=== PATIENT | female | born 2000 | race Caucasian/White ===

== ENCOUNTER → 2022-01-18 11:14 | Outpatient (CLI) | payer OTHER, SELFPAY ==
[2022-01-18 12:35] LABS: COVID19 -Nasal RAPID Negative (Negative)
== END ==
PROVIDERS: Visit Provider Nurse Practitioner Family
DX: Z20.822 Contact with and (suspected) exposure to COVID-19 (principal)
CPT/HCPCS: 87635; C9803

== ENCOUNTER → 2022-01-21 14:55 | Outpatient (CLI) | payer OTHER, SELFPAY ==
--- NOTE | 2022-01-21 16:09 | PM.TREADMILL ---
Cardiac Stress Test Report Referral & Results Date Patient Seen: 01/21/22 Time Patient Seen: 16:10 Requesting provider: Rosie Parrish Indication: Chest PAIN Rest ECG: SINUS RHYTHM Procedure Note: STANDARD CHRISTIANO PROTOCOL, 9:00 MINS; 10.1 mets REDUCED EXERCISE CAPACITY; BANDAR +16% ACCELERATED HEART RATE RESPONSE; HYPERTENSIVE AT BASELINE NO CHEST PAIN OR ANGINAL SYMPTOMS NO SIGNIFICANT ST CHAGES AT PEAK EXERCISE RARE PVC TEST STOPPED DUE TO HYPERTENSION AND FATIGUE Impression: NORMAL EXERCISE STRESS TEST Please note: Actual ECG tracings can be found in the PACS system.
--- NOTE | 2022-01-21 19:28 | DI.NM.S_ITS ---
DATE OF SERVICE: 01/21/2022 PROCEDURE PERFORMED: Exercise treadmill stress test without imaging. ORDERING PROVIDER: Dr. Simba Parrish. 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 FINDINGS: 1. The patient was able to exercise for 9 minutes on a standard Mithc protocol suggesting mildly reduced exercise capacity with an BANDAR of +16%, achieving 10.1 METs although was stopped because of her hypertensive blood pressure response. 2. She had sinus tachycardia at rest at 118 BPM, but a normal heart rate response to exercise, achieving a maximum heart rate of 197 BPM (99% of her predicted maximum). She had a moderate hypertensive blood pressure response to exercise with a resting blood pressure of 140/82, increasing to a maximum of 220/90. 3. She had no chest discomfort or other anginal symptoms. 4. Her resting ECG shows sinus tachycardia with normal ST segments. With exercise, there were no significant ST-segment shifts or arrhythmias with the exception of rare isolated PVCs. IMPRESSION: 1. Normal exercise treadmill study for ischemia. 2. Possible mildly impaired exercise capacity without angina. She had a moderate hypertensive blood pressure response to exercise and mild resting sinus tachycardia, but a normal heart rate response. She had rare isolated PVCs but no other arrhythmias. Gloria Can - JOSE ELIAS/gilma/leonel doc#: [id number]/job#: [id number] dd: 01/21/2022 16:52:00 dt: 01/21/2022 18:18:00 DICTATING MD/COPIES TO: Seb Irby MD; Rosie Parrish MD COPIES MNE: THOMAS;
== END ==
PROVIDERS: PCP Physician Assistant; Referring Provider Internal Medicine Cardiovascular Disease; Visit Provider Internal Medicine Cardiovascular Disease
DX: R07.89 Other chest pain (principal); Q79.60 Ehlers-Danlos syndrome, unspecified; R00.0 Tachycardia, unspecified; R55 Syncope and collapse
CPT/HCPCS: 93017

== ENCOUNTER 2022-05-16 15:31 | Emergency (ER) | payer OTHER, SELFPAY ==
[2022-05-16 15:53] VITALS: BP 150/102; PULSE 131; RESP 22; TEMP 36.6; O2SAT 99; BMI 35.4
[2022-05-16 17:50] LABS: Add Manual Diff / Slide Review NO; Alanine Aminotransferase 17 IU/L (<35); Albumin Globulin Ratio 1.4 (1.0-2.8); Alkaline Phosphatase 59 U/L (38-126); Aspartate Aminotransferase 25 IU/L (14-36); BUN Creatinine Ratio 18.3 (6-22); Basophils Absolute Auto 100 /uL (0-100); Bilirubin Total 0.6 mg/dL (0.2-1.3); Blood Urea Nitrogen 13 mg/dL (7-17); Calcium 9.7 mg/dL (8.4-10.2); Carbon Dioxide 31 mmol/L (22-32); Chloride 100 mmol/L (98-107); Eosinophils Absolute Auto 300 /uL (0-450); Eosinophils Percent Auto 2.5 % (2-4); Estimated Glomerular Filt Rate > 60 mL/min (>60); Globulin 3.5 g/dL (1.7-4.1); Glucose 87 mg/dL (70-100); HEMOLYSIS < 15 (0-50); Hematocrit 38.6 % (36-46); Hemoglobin 13.4 g/dL (12.0-16.0); Lipase 59 U/L (23-300); Lymphocytes Absolute Auto 3000 /uL (1100-4500); Lymphocytes Percent Auto 28.7 % (25-40); Mean Corpuscular HGB Conc 34.8 % (30-36); Mean Corpuscular Volume 86.2 fL (80-100); Monocytes Absolute Auto 1000 /uL (0-900); Monocytes Percent Auto 9.2 % (3-14); Neutrophils Absolute Auto 6200 /uL (1500-7000); Neutrophils Percent Auto 58.6 % (50-75); Platelet Count 322 X10^3/uL (150-400); Potassium 3.9 mmol/L (3.4-5.1); Red Blood Cell Count 4.48 X10^6/uL (4.0-5.2); Red Cell Distribution Width 11.8 % (11.6-14.8); Sodium 140 mmol/L (137-145); Total Protein 8.5 g/dL (6.3-8.2); White Blood Cell Count 10.6 X10^3/uL (4.5-11.0)
--- NOTE | 2022-05-16 18:02 | ED.ABDPAIN ---
HPI - Abdominal Pain General Chief Complaint: Abdominal Pain Stated Complaint: lt. upper abd. pain/dizzy/chest pain Time Seen by Provider: 05/16/22 18:02 Source: patient Mode of arrival: Family Vehicle Limitations: no limitations History of Present Illness HPI narrative: This is a 22-year-old female with known Bia Danlos, autonomic dysfunction, endometriosis, PCOS and about to follow-up with neurology for evaluation for MS. Patient presents today with left upper quadrant something sensation with occasional intermittent pain. Patient states it is really the left upper quadrant only, she states it has been going on for 3-4 days occasionally she will feel nauseated but has not had any vomiting. She denies syncope but has had some mild dizziness. No fevers, no chills. She thought she might be constipated but did have a normal bowel movement today. Denies dysuria, urgency frequency or new changes to urination. She denies black or bloody stools. Denies any back or flank pain. She states it is intermittent it seems to happen more when she is standing or sitting. Patient notes she takes trazodone and gabapentin, Tylenol and Advil daily. She is supposed to be beta keysha but does not take it at this point. She has not had any prior surgeries. No known drug allergies. She is had a stress test which was normal except for hypertensive response to exercise. No tobacco, rare alcohol she did have a large Lexie yesterday and thought it might have interacted with her medications. Denies any illicit. She is accompanied by her . Related Data Allergies Allergy/AdvReac Type Severity Reaction Status Date / Time No Known Drug Allergies Allergy Verified 05/16/22 15:53 Review of Systems Review of Systems ROS Unobtainable: All systems reviewed & are unremarkable except as noted in HPI and below Patient History Social History Smoking Status: Never smoker Smoking Status: Never smoker alcohol intake frequency: 0-2 drinks per day Substance Use Type: marijuana Exam Narrative Exam Narrative: GENERAL: Alert and oriented x three, female in mild distress. HEENT: Head normocephalic, atraumatic, EOMI, pupils reactive, face symmetric, moist mucous membranes NECK: Supple, full range of motion CARDIOVASCULAR: Regular rate and rhythm without murmurs, rubs or gallops. RESPIRATORY: Breath sounds equal bilaterally, no wheezes rales or rhonchi. ABDOMEN: Soft, nontender. Normoactive bowel sounds all 4 quadrants. No guarding or rebound, rigidity, no mass, nondistended no fullness. No hepatosplenomegaly. : No CVA tenderness EXTREMITIES: Normal range of motion, no clubbing or edema. Neurovascularly intact NEUROLOGICAL: Cranial nerves II through XII grossly intact. Moving all extremities SKIN: Warm, dry, no petechiae, no rashes or lesions. Initial Vital Signs Initial Vital Signs: Vital Signs Temperature 97.8 F 05/16/22 15:53 Pulse Rate 131 H 05/16/22 15:53 Respiratory Rate 22 05/16/22 15:53 Blood Pressure 150/102 H 05/16/22 15:53 Pulse Oximetry 99 05/16/22 15:53 Oxygen Delivery Method 05/16/22 15:53 Course Orders Ordered: ED Orders 05/16/22 15:59 EKG-12 Lead Stat 05/16/22 17:28 Complete Blood Count AUTO DIFF Stat Comprehensive Metabolic Panel Stat Lipase Stat 05/16/22 18:35 US abdomen complete Stat Vital Signs Vital signs: Vital Signs - 8 hr 05/16/22 15:53 05/16/22 18:09 05/16/22 18:12 Temperature 97.8 F Pulse Rate 131 H 110 H Respiratory Rate 22 Blood Pressure 150/102 H 119/81 Pulse Oximetry 99 98 Oxygen Delivery Method Room Air 05/16/22 18:12 05/16/22 18:30 05/16/22 18:30 Temperature Pulse Rate 99 H 103 H Respiratory Rate 19 34 H Blood Pressure 137/99 H Pulse Oximetry 100 97 Oxygen Delivery Method 05/16/22 19:00 05/16/22 19:00 Temperature Pulse Rate 90 Respiratory Rate 28 H Blood Pressure 131/67 Pulse Oximetry 98 Oxygen Delivery Method MDM - Abdominal Pain Lab Data Result diagrams: 05/16/22 17:28 05/16/22 17:28 Labs: Lab Results 05/16/22 05/16/22 Range/Units 17:28 17:28 WBC 10.6 (4.5-11.0) X10^3/uL RBC 4.48 (4.0-5.2) X10^6/uL Hgb 13.4 (12.0-16.0) g/dL Hct 38.6 (36-46) % MCV 86.2 (80-100) fL MCH 30.0 (26-34) PG MCHC 34.8 (30-36) % RDW 11.8 (11.6-14.8) % Plt Count 322 (150-400) X10^3/uL Neut % (Auto) 58.6 (50-75) % Lymph % (Auto) 28.7 (25-40) % O'Brien % (Auto) 9.2 (3-14) % Eos % (Auto) 2.5 (2-4) % Baso % (Auto) 1.0 (0-2) % Neut # (Auto) 6200 (6186-3590) /uL Lymph # (Auto) 3000 (4773-3254) /uL O'Brien # (Auto) 1000 H (0-900) /uL Eos # (Auto) 300 (0-450) /uL Baso # (Auto) 100 (0-100) /uL Sodium 140 (137-145) mmol/L Potassium 3.9 (3.4-5.1) mmol/L Chloride 100 (98-107) mmol/L Carbon Dioxide 31 (22-32) mmol/L BUN 13 (7-17) mg/dL Creatinine 0.71 (0.52-1.04) mg/dL Estimated GFR > 60 (>60) mL/min BUN/Creatinine Ratio 18.3 (6-22) Glucose 87 (70-100) mg/dL Calcium 9.7 (8.4-10.2) mg/dL Total Bilirubin 0.6 (0.2-1.3) mg/dL AST 25 (14-36) IU/L ALT 17 (<35) IU/L Alkaline Phosphatase 59 (38-126) U/L Total Protein 8.5 H (6.3-8.2) g/dL Albumin 5.0 (3.5-5.0) g/dL Globulin 3.5 (1.7-4.1) g/dL Albumin/Globulin Ratio 1.4 (1.0-2.8) Lipase 59 (23-300) U/L Point of care testing: Point of Care Testing Test Results Negative Urine Dip Bedside Urine Glucose Negative Bedside Urine Bilirubin - Negative Bedside Urine Ketone - Negative Urine Specific [place] 1.015 Bedside Urine Occult Blood - Negative Bedside Urine pH 6.0 Bedside Urine Protein - Negative Bedside Urine Urobilinogen - Negative Bedside Urine Nitrite - Negative Bedside Urine Leukocytes - Negative Esterase Imaging Data US - abdomen: Radiologist's Impression: Close Abdomen Ultrasound (Signed) Ned Santo - 05/16/22 Radiology Report (Cancelled) Seb Irby - 01/21/22 Launch?[address] [address] Ultrasound Report Signed Patient: Gloria Can MR#: [id number] : 2000 Acct:[id number] Age/Sex: 22 / F Date of Service: 05/16/22 Loc: ED Accession Number: [id number] ?? Procedure: US abdomen complete Ordering Provider: Kinjal Mejia D.O. PROCEDURE:? US ABDOMEN COMPLETE ? INDICATIONS:? LUQ thumping, discomfort, Hx bia Danlos ? TECHNIQUE:? Real-time scanning was performed of the abdominal and retroperitoneal organs, with image documentation.? ? COMPARISON:? None. ? FINDINGS:? ? Liver:? Liver is normal in size and homogeneous in echotexture.? ? Gallbladder:? Is unremarkable ? Biliary ducts:? Intrahepatic bile ducts are non-dilated.? Extrahepatic bile duct caliber measures 3.1 mm.? Normal is 6-7 mm or less in diameter, or 10 mm or less post-cholecystectomy.? ? Pancreas:? Visualized portions of the pancreas are sonographically normal.? ? Spleen:? Spleen is normal in size and homogeneous in echotexture.? ? Kidneys:? Kidneys are normal in size and echotexture.? Right kidney measures 13.7 cm long; left kidney measures 12.7 cm long.? No hydronephrosis or nephrolithiasis.? No solid masses.? ? Aorta:? Visualized aorta is normal in caliber at less than 3 cm.? ? Iliacs:? Proximal common iliac arteries are normal in caliber at less than 2.5 cm.? ? IVC:? Intrahepatic inferior vena cava is patent.? ? Miscellaneous:? No free abdominal fluid.? ? ? IMPRESSION:? Unremarkable abdominal ultrasound. ? Dictated by: Ned Santo M.D. on 05/16/2022 at 19:47 ? ? Approved by: Ned Santo M.D. on 05/16/2022 at 19:48?? ECG Data Attestation: I personally reviewed and interpreted this ECG as follows: Prior ECG tracings: not available for review Interpretation: Sinus tachycardia rate 114, VT 160 QRS 106 QTC 468. No priors available. MDM Narrative Medical decision making narrative: This is a 22-year-old female presents with upper left abdominal thumping. Patient does have tachycardia and states she is known to have a tachycardia syndrome but does not know the exact name. She states she is supposed to be on a beta-keysha but not currently taking it. She does have a history complicated by Bia-Danlos, been told she is some autonomic dysfunction and is supposed to see Neurology for evaluation for MS. Labs overall are reassuring, EKG shows sinus tachycardia but no other acute changes. Patient is nontender on exam she does not any chest pain or shortness of breath. Patient states she had a CT of her chest abdomen pelvis 6 months ago which was normal. Discussed imaging with ultrasound versus CT. Patient imaging is overall reassuring with no other acute changes appreciated. Discharge Plan Departure Patient Disposition: Home Clinical Impression: Abdominal pain Activity Restrictions/Additional Instructions: Follow-up with your physician for recheck if you continue to have persistent symptoms. You may continue your home medications as prescribed. Please return for fevers, rapidly worsening pain, passing out, persistent vomiting, black or bloody stools or other new or concerning symptoms. Referrals: Beryl Guerra PA-C [Primary Care Provider] - Visit Report Forms: Patient Portal/API
[2022-05-16 18:09] VITALS: PULSE 110; O2SAT 98
[2022-05-16 18:12] VITALS: BP 119/81; PULSE 99; RESP 19; O2SAT 100
[2022-05-16 18:30] VITALS: BP 137/99; PULSE 103; RESP 34; O2SAT 97
--- NOTE | 2022-05-16 18:35 | DI.US.S_ITS ---
PROCEDURE: US ABDOMEN COMPLETE INDICATIONS: LUQ thumping, discomfort, Hx dahlia Danlos TECHNIQUE: Real-time scanning was performed of the abdominal and retroperitoneal organs, with image documentation. COMPARISON: None. FINDINGS: Liver: Liver is normal in size and homogeneous in echotexture. Gallbladder: Is unremarkable Biliary ducts: Intrahepatic bile ducts are non-dilated. Extrahepatic bile duct caliber measures 3.1 mm. Normal is 6-7 mm or less in diameter, or 10 mm or less post-cholecystectomy. Pancreas: Visualized portions of the pancreas are sonographically normal. Spleen: Spleen is normal in size and homogeneous in echotexture. Kidneys: Kidneys are normal in size and echotexture. Right kidney measures 13.7 cm long; left kidney measures 12.7 cm long. No hydronephrosis or nephrolithiasis. No solid masses. Aorta: Visualized aorta is normal in caliber at less than 3 cm. Iliacs: Proximal common iliac arteries are normal in caliber at less than 2.5 cm. IVC: Intrahepatic inferior vena cava is patent. Miscellaneous: No free abdominal fluid. IMPRESSION: Unremarkable abdominal ultrasound. Dictated by: Ned Santo M.D. on 05/16/2022 at 19:47 Approved by: Ned Santo M.D. on 05/16/2022 at 19:48
[2022-05-16 19:00] VITALS: BP 131/67; PULSE 90; RESP 28; O2SAT 98
[2022-05-16 19:30] VITALS: PULSE 92; RESP 15
== END 2022-05-16 20:09 | disposition home or self-care (01) ==
PROVIDERS: Emergency Medicine; Emergency Provider Emergency Medicine; PCP Physician Assistant
DX: R10.12 Left upper quadrant pain (principal); R42 Dizziness and giddiness
CPT/HCPCS: 36415; 76700; 80053; 81003; 81025; 83690; 85025; 93005; 99284

== ENCOUNTER 2022-05-24 17:02 | Emergency (ER) | payer OTHER, SELFPAY ==
[2022-05-24] VITALS (7 sets, daily range): BP systolic 122–147; BP diastolic 70–89; PULSE 89–105; RESP 22; TEMP 37.1; O2SAT 99–100; BMI 36.1
--- NOTE | 2022-05-24 17:51 | ED.NEUROSD ---
HPI - Neuro Symptoms/Deficit General Chief Complaint: Neuro Symptoms/Deficit Stated Complaint: numbness on lt. side of face Time Seen by Provider: 05/24/22 17:50 Source: patient Mode of arrival: Ambulatory History of Present Illness HPI Narrative: Patient is a 22-year-old female with history of stroke vs MS, presenting today with on going left-sided facial pressure. She says that she has had left arm numbness since about 1-2 years ago. I does not feel quite right. She has had 2 MRIs, the 1st MRI showed a lesion she said the 2nd 1 showed that it had resolved. She over the last 4 days has felt pressure on left side of her face. She feels like she has difficulty swallowing she is not drinking she has little dizzy and lightheaded. She denies any fever or chills. She has no sinus pressure. She has no sore throat or ear pain. She overall appears well. She is not nauseous or vomiting. She really does not have new neurologic deficits. She says that she has chest pain every day. sHe says not any worse or different today. On Anticoagulants: No Related Data Allergies Allergy/AdvReac Type Severity Reaction Status Date / Time No Known Drug Allergies Allergy Verified 05/16/22 15:53 Review of Systems Review of Systems Narrative: GENERAL: Denies chills, fatigue, malaise, fever, sweats, travel HEENT: Denies sinus pain, ear pain, sore throat, difficulty swallowing, neck pain RESPIRATORY: Denies dyspnea, cough, wheezing, hemoptysis, sputum. CARDIOVASCULAR: Denies chest pain, palpitations, orthopnea, edema GASTROINTESTINAL: Denies nausea, vomiting, abdominal pain, diarrhea, constipation, melena. : Denies dysuria, frequency, incontinence, hematuria, urinary retention, flank pain. MUSCULOSKELETAL: Denies weakness, joint pain, or bony pain SKIN: No rash, no erythema, no pruritus NEUROLOGIC: See HPI PSYCHIATRIC: No concerning psychosocial issues. 12 point review of systems is negative except for those stated above and HPI Hematologic/Lymphatic On Anticoagulants: No Patient History Social History Smoking Status: Never smoker Smoking Status: Never smoker alcohol intake frequency: 0-2 drinks per day Substance Use Type: marijuana Exam Initial Vital Signs Initial Vital Signs: Vital Signs Pulse Rate 105 H 05/24/22 17:33 Blood Pressure 147/89 H 05/24/22 17:33 Pulse Oximetry 100 05/24/22 17:33 GENERAL: Well-appearing, well-nourished and in no acute distress. HEENT: Head atraumatic,EOMI, pupils reactive, face symmetric, moist mucous membranes NECK: Supple CARDIOVASCULAR: Regular rate and rhythm without murmurs, rubs or gallops. RESPIRATORY: Breath sounds equal bilaterally, no wheezes rales or rhonchi. ABDOMEN: Soft, nontender. Normoactive bowel sounds all 4 quadrants. No guarding or rebound. EXTREMITIES: Normal range of motion, no clubbing or edema. Neurovascularly intact NEUROLOGICAL: Alert and oriented x4.Normal gait and speech. Cranial nerves II through XII grossly intact. Good vrksia-sg-undk, good nyok-nk-ptln, strength equal bilaterally, no dysarthria or aphasia, sensation on left side slightly decreased but at baseline, no visual changes, no facial droop SKIN: Warm, dry, no laceration, no petechiae, no rashes or lesions. Scores NIH Stroke Scale Level of Conciousness: Alert, keenly responsive Ask month/age: Answers both questions correctly. Open/close eyes, close hand: Performs both tasks correctly Best gaze horizontal: Normal Visual elaine: No visual loss Facial palsy: Normal symetrical movement Left arm drift: No drift for full 10 sec Right arm drift: No drift for full 10 sec Left leg drift: No drift for full 5 sec Right leg drift: No drift for full 5 sec Limb ataxia: Absent Sensory on face/arms/legs: Mild to moderate sensory loss, can tell touch (chronic) Best language: No aphasia, normal Dysarthria: Normal Extinction or inattention: No abnormality Total NIH Stroke scale score: 1 Course Orders Ordered: ED Orders 05/24/22 17:57 CT head/brain wo con Stat EKG-12 Lead Stat 05/24/22 18:30 CBC Auto Diff [Complete Blood Count AUTO DIFF] Stat CMP [Comprehensive Metabolic Panel] Stat Troponin & CK Cardiac Panel Stat 05/24/22 19:39 Urinalysis and Microscopic Stat 05/24/22 19:40 Test Urine Stat Discontinued Medications Hydrocodone Bitart/Acetaminophen (Hydrocodone/Acet 5/325 Prepack) 1 bottle MISC SEEINSTR ONE Stop: 05/24/22 19:55 Last Admin: 05/24/22 20:04 Dose: 1 bottle Documented By: ASHLY Dexamethasone (Dexamethasone 10 Mg/Ml Vial) 6 mg IV NOW ONE Stop: 05/24/22 17:58 Last Admin: 05/24/22 18:51 Dose: 6 mg Documented By: AMU Sodium Chloride (Normal Saline 0.9%) 1,000 mls @ 1,000 mls/hr IV BOLUS ONE Stop: 05/24/22 18:56 Last Infusion: 05/24/22 19:54 Dose: 0 mls/hr Documented By: Admin: 05/24/22 18:51 Dose: 1,000 mls/hr Documented By: AMU Vital Signs Vital signs: Vital Signs - 8 hr 05/24/22 17:37 05/24/22 17:33 05/24/22 17:33 Temperature 98.7 F Pulse Rate 97 H 105 H Respiratory Rate 22 Blood Pressure 147/89 H 147/89 H Pulse Oximetry 100 100 Oxygen Delivery Method Room Air 05/24/22 18:00 05/24/22 18:00 05/24/22 18:38 Temperature Pulse Rate 94 H 94 H Respiratory Rate Blood Pressure 138/83 Pulse Oximetry 100 99 Oxygen Delivery Method 05/24/22 19:00 05/24/22 19:30 05/24/22 19:37 Temperature Pulse Rate 89 91 H 99 H Respiratory Rate Blood Pressure Pulse Oximetry 100 100 100 Oxygen Delivery Method 05/24/22 19:37 Temperature Pulse Rate Respiratory Rate Blood Pressure 122/70 Pulse Oximetry Oxygen Delivery Method MDM - Neuro Symptoms/Deficit Lab Data Result diagrams: 05/24/22 18:30 05/24/22 18:30 Labs: Lab Results 05/24/22 05/24/22 05/24/22 Range/Units 18:30 18:30 19:39 WBC 9.9 (4.5-11.0) X10^3/uL RBC 4.14 (4.0-5.2) X10^6/uL Hgb 12.6 (12.0-16.0) g/dL Hct 35.9 L (36-46) % MCV 86.8 (80-100) fL MCH 30.4 (26-34) PG MCHC 35.0 (30-36) % RDW 12.0 (11.6-14.8) % Plt Count 277 (150-400) X10^3/uL Neut % (Auto) 60.6 (50-75) % Lymph % (Auto) 29.7 (25-40) % [place] % (Auto) 7.2 (3-14) % Eos % (Auto) 1.6 L (2-4) % Baso % (Auto) 0.9 (0-2) % Neut # (Auto) 6000 (7044-4758) /uL Lymph # (Auto) 2900 (5926-4556) /uL [place] # (Auto) 700 (0-900) /uL Eos # (Auto) 200 (0-450) /uL Baso # (Auto) 100 (0-100) /uL Sodium 141 (137-145) mmol/L Potassium 3.9 (3.4-5.1) mmol/L Chloride 104 (98-107) mmol/L Carbon Dioxide 27 (22-32) mmol/L BUN 12 (7-17) mg/dL Creatinine 0.76 (0.52-1.04) mg/dL Estimated GFR > 60 (>60) mL/min BUN/Creatinine Ratio 15.8 (6-22) Glucose 83 (70-100) mg/dL Calcium 9.4 (8.4-10.2) mg/dL Total Bilirubin 0.3 (0.2-1.3) mg/dL AST 25 (14-36) IU/L ALT 15 (<35) IU/L Alkaline Phosphatase 60 (38-126) U/L Total Creatine Kinase 154 H (30-135) U/L CK-MB (CK-2) 1.55 (<2.37) ng/mL CK-MB (CK-2) Rel Index 1.0 L (1.5-5.0) % Troponin I < 0.012 (0.01-0.034) ng/mL Total Protein 8.3 H (6.3-8.2) g/dL Albumin 4.8 (3.5-5.0) g/dL Globulin 3.5 (1.7-4.1) g/dL Albumin/Globulin Ratio 1.4 (1.0-2.8) Urine Color Straw Urine Appearance Clear Urine pH 7.0 (4.5-8.0) Ur Specific [place] <=1.005 (1.000-1.035) Urine Protein Negative (Negative) Urine Glucose (UA) Negative (Negative) g/dL Urine Ketones Negative (NEGATIVE) Urine Occult Blood Negative (Negative) Urine Nitrate Negative (Negative) Urine Bilirubin Negative (NEGATIVE) Urine Urobilinogen 0.2 (0.2) E.U./dL Ur Leukocyte Esterase Negative (NEGATIVE) Urine RBC 0-1/hpf (0-5/HPF) Urine WBC 0-1/hpf (0-5/HPF) Urine Bacteria None seen (None) Ur Culture Indicated? Cult not indicated Urine Test (Negative) 05/24/22 Range/Units 19:40 WBC (4.5-11.0) X10^3/uL RBC (4.0-5.2) X10^6/uL Hgb (12.0-16.0) g/dL Hct (36-46) % MCV (80-100) fL MCH (26-34) PG MCHC (30-36) % RDW (11.6-14.8) % Plt Count (150-400) X10^3/uL Neut % (Auto) (50-75) % Lymph % (Auto) (25-40) % [place] % (Auto) (3-14) % Eos % (Auto) (2-4) % Baso % (Auto) (0-2) % Neut # (Auto) (7260-7416) /uL Lymph # (Auto) (9349-1478) /uL [place] # (Auto) (0-900) /uL Eos # (Auto) (0-450) /uL Baso # (Auto) (0-100) /uL Sodium (137-145) mmol/L Potassium (3.4-5.1) mmol/L Chloride (98-107) mmol/L Carbon Dioxide (22-32) mmol/L BUN (7-17) mg/dL Creatinine (0.52-1.04) mg/dL Estimated GFR (>60) mL/min BUN/Creatinine Ratio (6-22) Glucose (70-100) mg/dL Calcium (8.4-10.2) mg/dL Total Bilirubin (0.2-1.3) mg/dL AST (14-36) IU/L ALT (<35) IU/L Alkaline Phosphatase (38-126) U/L Total Creatine Kinase (30-135) U/L CK-MB (CK-2) (<2.37) ng/mL CK-MB (CK-2) Rel Index (1.5-5.0) % Troponin I (0.01-0.034) ng/mL Total Protein (6.3-8.2) g/dL Albumin (3.5-5.0) g/dL Globulin (1.7-4.1) g/dL Albumin/Globulin Ratio (1.0-2.8) Urine Color Urine Appearance Urine pH (4.5-8.0) Ur Specific [place] (1.000-1.035) Urine Protein (Negative) Urine Glucose (UA) (Negative) g/dL Urine Ketones (NEGATIVE) Urine Occult Blood (Negative) Urine Nitrate (Negative) Urine Bilirubin (NEGATIVE) Urine Urobilinogen (0.2) E.U./dL Ur Leukocyte Esterase (NEGATIVE) Urine RBC (0-5/HPF) Urine WBC (0-5/HPF) Urine Bacteria (None) Ur Culture Indicated? Urine Test Negative (Negative) Imaging Data CT scan - head: Radiologist's Impression: ?Gloria Can MR#: [id number] : 2000 Acct:[id number] Age/Sex: 22 / F Date of Service: 05/24/22 Loc: Accession Number: [id number] ?? Procedure: CT head/brain wo con Ordering Provider: Simi Joy D.O. PROCEDURE:? CT HEAD/BRAIN WO CON ? INDICATIONS:? pressure left side of face ? TECHNIQUE:? Noncontrast 4.5 mm thick angled axial sections acquired from the foramen magnum to the vertex, with coronal and sagittal reformats.? For radiation dose reduction, the following was used:? automated exposure control, adjustment of mA and/or kV according to patient size.? ? COMPARISON:? [facility], MR, MR BRAIN WITHOUT CONTRAST, 02/13/2022, 14:07. ? FINDINGS:? Image quality:? Excellent.? ? CSF spaces:? Basal cisterns are patent.? No extra-axial fluid collections.? Ventricles are normal in size and shape.? ? Brain:? No midline shift.? No intracranial masses or hemorrhage.? Nam-white matter interface is normal.? ? Skull and face:? Calvarium and visualized facial bones are intact, without suspicious lesions.? ? Sinuses:? Visualized sinuses and mastoids are clear.? IMPRESSION:? Normal noncontrast head CT, without a cause of the patient's presenting symptoms identified. ? ? Dictated by: Jim Luther M.D. on 05/24/2022 at 17:24 ? ? ECG Data Interpretation: Normal sinus AK interval 164 QRS [address] changes T-wave inversion noted in lead 3 only MDM Narrative Medical decision making narrative: Patient is having some left-sided facial pressure. She has no new neurologic deficits. Head CT is negative. Blood work is overall reassuring. She has appointment with neurology and couple of weeks she says is taking her couple years to get it. She is given a dose of dexamethasone. I have given her prepack for hydrocodone to help give her some relief tonight she drove herself here today. Other etiologies included trigeminal neuralgia however this does not seem to be neurologic sharp stabbing pain. Unlikely to be stroke. Possible MS flare but it just does not quite fit. Discharge Plan Departure Patient Disposition: Home Clinical Impression: Headache Instructions: DI for Cluster Headache Activity Restrictions/Additional Instructions: *You have been diagnosed with headache *What to do: At this time head CT is negative blood work is reassuring. I do encourage follow-up with neurology as you have scheduled. You were given 1 dose of dexamethasone which might help some of the inflammation. *Continue to take medications as directed Ibuprofen 600 mg every 6 hours if needed for fqsi-uu-roegwmzz pain (do not take with Advil, naproxen or other NSAIDs) Tylenol 1000 mg every 6 hours if needed for neoy-pe-brwfrxhk pain [place] 1 tablet every 6 hours if needed for severe pain *Follow up with your primary care provider in 2-3 days or call [phone] *Return to ER if you should have increasing pain numbness tingling or weakness or any new, worsening or concerning symptoms CONTROLLED SUBSTANCE DISCHARGE (Narcotoic/benzodiazepine/Flexeril/Phenergan) 1. You have been prescribed narcotic medications, it does have acetaminophen/Tylenol/paracetamol in it, DO NOT TAKE MORE THAN 4,00mg in 24 hours of Tylenol. TRAMADOL DOES NOT CONTAIN TYLENOL 2. Please understand that we cannot provide further refills of narcotics, benzodiazepines or controlled substances through the ED and her pain management will need to be through your provider. 3. While on these medications you cannot drive or operate heavy machinery. 4. You cannot sign legal documents or perform any duties such as this. 5. As long as you're taking opiate pain medications he should also be taking a stool softener such as Colace, Dulcolax, MiraLAX or prune juice, to help avoid constipation. Referrals: Beryl Guerra PA-C [Primary Care Provider] - Visit Report Forms: Patient Portal/API
--- NOTE | 2022-05-24 17:57 | DI.CT.S_ITS ---
PROCEDURE: CT HEAD/BRAIN WO CON INDICATIONS: pressure left side of face TECHNIQUE: Noncontrast 4.5 mm thick angled axial sections acquired from the foramen magnum to the vertex, with coronal and sagittal reformats. For radiation dose reduction, the following was used: automated exposure control, adjustment of mA and/or kV according to patient size. COMPARISON: [facility], MR, MR BRAIN WITHOUT CONTRAST, 02/13/2022, 14:07. FINDINGS: Image quality: Excellent. CSF spaces: Basal cisterns are patent. No extra-axial fluid collections. Ventricles are normal in size and shape. Brain: No midline shift. No intracranial masses or hemorrhage. Nam-white matter interface is normal. Skull and face: Calvarium and visualized facial bones are intact, without suspicious lesions. Sinuses: Visualized sinuses and mastoids are clear. IMPRESSION: Normal noncontrast head CT, without a cause of the patient's presenting symptoms identified. Dictated by: Jim Luther M.D. on 05/24/2022 at 17:24 Approved by: Jim Luther M.D. on 05/24/2022 at 17:25
[2022-05-24] MEDS: SODIUM CHLORIDE 0.9% 1,000 ML 1000 ML IV (18:51)
[2022-05-24] MEDS: DEXAMETHASONE 10 MG/ML VIAL 6 MG IV (18:51)
[2022-05-24 18:55] LABS: Add Manual Diff / Slide Review NO; Basophils Absolute Auto 100 /uL (0-100); Basophils Percent Auto 0.9 % (0-2); Eosinophils Absolute Auto 200 /uL (0-450); Eosinophils Percent Auto 1.6 % (2-4); Hematocrit 35.9 % (36-46); Hemoglobin 12.6 g/dL (12.0-16.0); Lymphocytes Absolute Auto 2900 /uL (1100-4500); Lymphocytes Percent Auto 29.7 % (25-40); Mean Corpuscular Hemoglobin 30.4 PG (26-34); Mean Corpuscular Volume 86.8 fL (80-100); Monocytes Absolute Auto 700 /uL (0-900); Monocytes Percent Auto 7.2 % (3-14); Neutrophils Absolute Auto 6000 /uL (1500-7000); Neutrophils Percent Auto 60.6 % (50-75); Platelet Count 277 X10^3/uL (150-400); Red Blood Cell Count 4.14 X10^6/uL (4.0-5.2); White Blood Cell Count 9.9 X10^3/uL (4.5-11.0)
[2022-05-24 19:05] LABS: Alanine Aminotransferase 15 IU/L (<35); Albumin 4.8 g/dL (3.5-5.0); Albumin Globulin Ratio 1.4 (1.0-2.8); Alkaline Phosphatase 60 U/L (38-126); Aspartate Aminotransferase 25 IU/L (14-36); BUN Creatinine Ratio 15.8 (6-22); Bilirubin Total 0.3 mg/dL (0.2-1.3); Blood Urea Nitrogen 12 mg/dL (7-17); Calcium 9.4 mg/dL (8.4-10.2); Carbon Dioxide 27 mmol/L (22-32); Chloride 104 mmol/L (98-107); Creatine Kinase 154 U/L (30-135); Estimated Glomerular Filt Rate > 60 mL/min (>60); Globulin 3.5 g/dL (1.7-4.1); Glucose 83 mg/dL (70-100); HEMOLYSIS < 15 (0-50); Potassium 3.9 mmol/L (3.4-5.1); Sodium 141 mmol/L (137-145); Total Protein 8.3 g/dL (6.3-8.2)
[2022-05-24 19:16] LABS: Troponin I < 0.012 ng/mL (0.01-0.034)
[2022-05-24 19:20] LABS: Creatine Kinase MB 1.55 ng/mL (<2.37)
[2022-05-24] MEDS: HYDROCODONE/ACET 5/325 PREPACK 1 BOTTLE MISC (20:04)
[2022-05-24 20:28] LABS: Pregnancy Test Urine Negative (Negative)
[2022-05-24 20:28] LABS: Appearance Urine UA CLEAR; Bilirubin Urine UA NEGATIVE (NEGATIVE); Glucose Urine UA NEGATIVE (Negative); Ketones Urine UA NEGATIVE (NEGATIVE); Leukocyte Esterase Urine UA NEGATIVE (NEGATIVE); Nitrite Urine UA NEGATIVE (Negative); Occult Blood Urine UA NEGATIVE (Negative); Protein Urine UA NEGATIVE (Negative); Specific Gravity Urine UA <=1.005 (1.000-1.035); Urobilinogen Urine UA 0.2 E.U./dL (0.2)
[2022-05-24 20:29] LABS: Color Urine UA Straw
[2022-05-24 21:13] LABS: Bacteria Urine None Seen; Culture Indicated Urine Cult Not Indicated; RBC Urine 0-1/HPF (0-5/HPF); WBC Urine 0-1/HPF (0-5/HPF)
== END 2022-05-24 20:10 | disposition home or self-care (01) ==
PROVIDERS: Emergency Provider Emergency Medicine; PCP Physician Assistant
DX: R51.9 Headache, unspecified (principal)
CPT/HCPCS: 36415; 70450; 80053; 81001; 81025; 82550; 82553; 84484; 85025; 93005; 96361; 96374; 99284; J1100

== ENCOUNTER 2022-05-28 13:52 | Emergency (ER) | payer OTHER, SELFPAY ==
[2022-05-28] VITALS (10 sets, daily range): BP systolic 132–182; BP diastolic 70–101; PULSE 91–129; RESP 14–31; TEMP 37.2; O2SAT 98–99
--- NOTE | 2022-05-28 14:06 | DI.RAD.S_ITS ---
PROCEDURE: XR CHEST 1V INDICATIONS: chest pain TECHNIQUE: One view of the chest was acquired. COMPARISON: [facility], CT, CT ANGIO CHEST PE, 10/29/2021, 13:31. [facility], CR, XR CHEST 1 VIEW, 10/29/2021, 10:17. FINDINGS: Surgical changes and devices: None. Lungs and pleura: Lungs are clear. No pleural effusions or pneumothorax. Mediastinum: Mediastinal contours appear normal. Heart size is normal. Bones and chest wall: No suspicious bony lesions. Overlying soft tissues appear unremarkable. IMPRESSION: No acute pulmonary process. Dictated by: Ayla Liz M.D. on 05/28/2022 at 15:06 Approved by: Ayla Liz M.D. on 05/28/2022 at 15:06
[2022-05-28 14:20] LABS: Add Manual Diff / Slide Review NO; Basophils Absolute Auto 100 /uL (0-100); Basophils Percent Auto 0.8 % (0-2); Eosinophils Absolute Auto 200 /uL (0-450); Eosinophils Percent Auto 1.6 % (2-4); Hemoglobin 13.3 g/dL (12.0-16.0); Lymphocytes Absolute Auto 2800 /uL (1100-4500); Lymphocytes Percent Auto 25.4 % (25-40); Mean Corpuscular HGB Conc 34.1 % (30-36); Mean Corpuscular Hemoglobin 29.7 PG (26-34); Monocytes Absolute Auto 800 /uL (0-900); Monocytes Percent Auto 7.4 % (3-14); Neutrophils Absolute Auto 7100 /uL (1500-7000); Neutrophils Percent Auto 64.8 % (50-75); Platelet Count 301 X10^3/uL (150-400); Red Blood Cell Count 4.49 X10^6/uL (4.0-5.2); Red Cell Distribution Width 12.1 % (11.6-14.8)
[2022-05-28 14:30] LABS: Alanine Aminotransferase 14 IU/L (<35); Albumin 4.9 g/dL (3.5-5.0); Albumin Globulin Ratio 1.3 (1.0-2.8); Alkaline Phosphatase 62 U/L (38-126); Aspartate Aminotransferase 23 IU/L (14-36); BUN Creatinine Ratio 17.3 (6-22); Bilirubin Total 0.5 mg/dL (0.2-1.3); Blood Urea Nitrogen 14 mg/dL (7-17); Calcium 9.6 mg/dL (8.4-10.2); Carbon Dioxide 27 mmol/L (22-32); Chloride 102 mmol/L (98-107); Creatine Kinase 97 U/L (30-135); Estimated Glomerular Filt Rate > 60 mL/min (>60); Globulin 3.8 g/dL (1.7-4.1); Glucose 96 mg/dL (70-100); HEMOLYSIS < 15 (0-50); Lipase 56 U/L (23-300); Potassium 4.2 mmol/L (3.4-5.1); Sodium 140 mmol/L (137-145); Total Protein 8.7 g/dL (6.3-8.2)
[2022-05-28 14:41] LABS: Troponin I < 0.012 ng/mL (0.01-0.034)
[2022-05-28 15:04] LABS: D Dimer 255 ng/ml (<500)
--- NOTE | 2022-05-28 15:15 | ED_ITS ---
HPI - Chest Pain General Chief Complaint: Chest Pain Stated Complaint: Chest pain, high heart rate, throat pain- here Fri Time Seen by Provider: 05/28/22 14:47 Source: patient Mode of arrival: Ambulatory History of Present Illness HPI narrative: Patient is a 22-year-old female with some neurologic issues going on presenting with sweating and fast heart rate. She was actually seen and evaluated here 5 days ago for some left-sided head pressure. She had blood work and head CT which were negative. She was given a couple hydrocodone. She said she had a worsening migraine over the weekend. She takes Latuda lamotrigine is and is recently started on BuSpar. Today she stood up she got extremely diaphoretic sweaty and saw that her heart rate went up to 163 on her Apple watch. She had to sit back down. She does every time she stands up she feels dizzy weak and lightheaded. She has no nausea vomiting. No chest pain. She has not longer having any palpitations. Patient was just started on Latuda on May 14 and she was just started on Buspurone on 05/22. Related Data Allergies Allergy/AdvReac Type Severity Reaction Status Date / Time No Known Drug Allergies Allergy Verified 05/16/22 15:53 Review of Systems Review of Systems Narrative: GENERAL: Denies chills, fatigue, malaise, fever, sweats, travel HEENT: Denies sinus pain, ear pain, sore throat, difficulty swallowing, neck pain RESPIRATORY: Denies dyspnea, cough, wheezing, hemoptysis, sputum. CARDIOVASCULAR: See HPI GASTROINTESTINAL: Denies nausea, vomiting, abdominal pain, diarrhea, constipation, melena. : Denies dysuria, frequency, incontinence, hematuria, urinary retention, flank pain. MUSCULOSKELETAL: Denies weakness, joint pain, or bony pain SKIN: No rash, no erythema, no pruritus NEUROLOGIC: See HPI PSYCHIATRIC: No concerning psychosocial issues. 12 point review of systems is negative except for those stated above and HPI Patient History Social History Smoking Status: Never smoker Smoking Status: Never smoker alcohol intake frequency: 0-2 drinks per day Substance Use Type: marijuana Exam Initial Vital Signs Initial Vital Signs: Vital Signs Temperature 98.9 F 05/28/22 14:01 Pulse Rate 129 H 05/28/22 14:01 Respiratory Rate 24 05/28/22 14:01 Blood Pressure 182/97 H 05/28/22 14:01 Pulse Oximetry 98 05/28/22 14:01 Oxygen Delivery Method 05/28/22 14:01 GENERAL: Alert well-appearing 22 year HEENT: Head atraumatic,EOMI, pupils reactive, face symmetric, moist mucous membranes CARDIOVASCULAR: Tachycardic regular no murmur RESPIRATORY: Breath sounds equal bilaterally, no wheezes rales or rhonchi. ABDOMEN: Soft, nontender. Normoactive bowel sounds all 4 quadrants. No guarding or rebound. EXTREMITIES: Normal range of motion, no clubbing or edema. Neurovascularly intact NEUROLOGICAL: Alert and oriented x4.Normal gait and speech. SKIN: Warm, dry, no laceration, no petechiae, no rashes or lesions. Course Orders Ordered: ED Orders 05/28/22 12:41 Lactate (Lactic Acid) Stat 05/28/22 14:06 XR chest 1V Stat EKG-12 Lead Stat 05/28/22 14:12 Complete Blood Count AUTO DIFF Stat Comprehensive Metabolic Panel Stat D Dimer Stat Lamotrigine Lamictal Stat Lipase Stat Magnesium Stat TSH [Thyroid Stimulating Hormone] Stat Troponin & CK Cardiac Panel Stat Discontinued Medications Sodium Chloride (Normal Saline 0.9%) 1,000 mls @ 1,000 mls/hr IV BOLUS ONE Stop: 05/28/22 16:24 Last Infusion: 05/28/22 16:39 Dose: 0 mls/hr Documented By: Admin: 05/28/22 15:35 Dose: 1,000 mls/hr Documented By: INEZ Vital Signs Vital signs: Vital Signs - 8 hr 05/28/22 14:01 05/28/22 15:42 05/28/22 15:10 Temperature 98.9 F Pulse Rate 129 H Pulse Rate [Orthostatic Lying] 91 H Pulse Rate [Orthostatic Sitting] 104 H Pulse Rate [Orthostatic Standing] 116 H Respiratory Rate 24 Blood Pressure 182/97 H Blood Pressure [Orthostatic Lying] 132/75 Blood Pressure [Orthostatic Sitting] 153/94 H Blood Pressure [Orthostatic Standing] 150/90 H Pulse Oximetry 98 98 Oxygen Delivery Method Room Air 05/28/22 15:11 05/28/22 15:11 05/28/22 15:30 Temperature Pulse Rate 111 H 94 H Pulse Rate [Orthostatic Lying] Pulse Rate [Orthostatic Sitting] Pulse Rate [Orthostatic Standing] Respiratory Rate 19 Blood Pressure 140/101 H Blood Pressure [Orthostatic Lying] Blood Pressure [Orthostatic Sitting] Blood Pressure [Orthostatic Standing] Pulse Oximetry 98 98 Oxygen Delivery Method 05/28/22 15:34 05/28/22 15:34 05/28/22 15:35 Temperature Pulse Rate 91 H 105 H Pulse Rate [Orthostatic Lying] Pulse Rate [Orthostatic Sitting] Pulse Rate [Orthostatic Standing] Respiratory Rate 14 24 Blood Pressure 132/75 Blood Pressure [Orthostatic Lying] Blood Pressure [Orthostatic Sitting] Blood Pressure [Orthostatic Standing] Pulse Oximetry 99 98 Oxygen Delivery Method 05/28/22 15:35 05/28/22 15:36 05/28/22 15:36 Temperature Pulse Rate 113 H Pulse Rate [Orthostatic Lying] Pulse Rate [Orthostatic Sitting] Pulse Rate [Orthostatic Standing] Respiratory Rate 31 H Blood Pressure 153/94 H 150/90 H Blood Pressure [Orthostatic Lying] Blood Pressure [Orthostatic Sitting] Blood Pressure [Orthostatic Standing] Pulse Oximetry 98 Oxygen Delivery Method Room Air 05/28/22 16:00 05/28/22 16:00 05/28/22 17:27 Temperature Pulse Rate 93 H 103 H Pulse Rate [Orthostatic Lying] Pulse Rate [Orthostatic Sitting] Pulse Rate [Orthostatic Standing] Respiratory Rate 21 16 Blood Pressure 134/83 132/70 Blood Pressure [Orthostatic Lying] Blood Pressure [Orthostatic Sitting] Blood Pressure [Orthostatic Standing] Pulse Oximetry 99 99 Oxygen Delivery Method Room Air MDM - Chest Pain Lab Data Result diagrams: 05/28/22 14:12 05/28/22 14:12 Labs: Lab Results 05/28/22 05/28/22 05/28/22 Range/Units 12:41 14:12 14:12 WBC 11.0 (4.5-11.0) X10^3/uL RBC 4.49 (4.0-5.2) X10^6/uL Hgb 13.3 (12.0-16.0) g/dL Hct 39.0 (36-46) % MCV 87.0 (80-100) fL MCH 29.7 (26-34) PG MCHC 34.1 (30-36) % RDW 12.1 (11.6-14.8) % Plt Count 301 (150-400) X10^3/uL Neut % (Auto) 64.8 (50-75) % Lymph % (Auto) 25.4 (25-40) % [place] % (Auto) 7.4 (3-14) % Eos % (Auto) 1.6 L (2-4) % Baso % (Auto) 0.8 (0-2) % Neut # (Auto) 7100 H (6766-2360) /uL Lymph # (Auto) 2800 (6720-5064) /uL [place] # (Auto) 800 (0-900) /uL Eos # (Auto) 200 (0-450) /uL Baso # (Auto) 100 (0-100) /uL D-Dimer (<500) ng/ml Sodium 140 (137-145) mmol/L Potassium 4.2 (3.4-5.1) mmol/L Chloride 102 (98-107) mmol/L Carbon Dioxide 27 (22-32) mmol/L BUN 14 (7-17) mg/dL Creatinine 0.81 (0.52-1.04) mg/dL Estimated GFR > 60 (>60) mL/min BUN/Creatinine Ratio 17.3 (6-22) Glucose 96 (70-100) mg/dL Lactate 1.0 (0.7-2.1) mmol/L Calcium 9.6 (8.4-10.2) mg/dL Magnesium 2.0 (1.6-2.3) mg/dL Total Bilirubin 0.5 (0.2-1.3) mg/dL AST 23 (14-36) IU/L ALT 14 (<35) IU/L Alkaline Phosphatase 62 (38-126) U/L Total Creatine Kinase 97 (30-135) U/L CK-MB (CK-2) TNP CK-MB (CK-2) Rel Index TNP Troponin I < 0.012 (0.01-0.034) ng/mL Total Protein 8.7 H (6.3-8.2) g/dL Albumin 4.9 (3.5-5.0) g/dL Globulin 3.8 (1.7-4.1) g/dL Albumin/Globulin Ratio 1.3 (1.0-2.8) Lipase 56 (23-300) U/L TSH (0.47-4.68) uIU/mL 05/28/22 05/28/22 Range/Units 14:12 14:12 WBC (4.5-11.0) X10^3/uL RBC (4.0-5.2) X10^6/uL Hgb (12.0-16.0) g/dL Hct (36-46) % MCV (80-100) fL MCH (26-34) PG MCHC (30-36) % RDW (11.6-14.8) % Plt Count (150-400) X10^3/uL Neut % (Auto) (50-75) % Lymph % (Auto) (25-40) % [place] % (Auto) (3-14) % Eos % (Auto) (2-4) % Baso % (Auto) (0-2) % Neut # (Auto) (0314-3891) /uL Lymph # (Auto) (3072-2310) /uL [place] # (Auto) (0-900) /uL Eos # (Auto) (0-450) /uL Baso # (Auto) (0-100) /uL D-Dimer 255 (<500) ng/ml Sodium (137-145) mmol/L Potassium (3.4-5.1) mmol/L Chloride (98-107) mmol/L Carbon Dioxide (22-32) mmol/L BUN (7-17) mg/dL Creatinine (0.52-1.04) mg/dL Estimated GFR (>60) mL/min BUN/Creatinine Ratio (6-22) Glucose (70-100) mg/dL Lactate (0.7-2.1) mmol/L Calcium (8.4-10.2) mg/dL Magnesium (1.6-2.3) mg/dL Total Bilirubin (0.2-1.3) mg/dL AST (14-36) IU/L ALT (<35) IU/L Alkaline Phosphatase (38-126) U/L Total Creatine Kinase (30-135) U/L CK-MB (CK-2) CK-MB (CK-2) Rel Index Troponin I (0.01-0.034) ng/mL Total Protein (6.3-8.2) g/dL Albumin (3.5-5.0) g/dL Globulin (1.7-4.1) g/dL Albumin/Globulin Ratio (1.0-2.8) Lipase (23-300) U/L TSH 1.17 (0.47-4.68) uIU/mL Imaging Data Chest x-ray: Radiologist's Impression: XRay Report Signed Patient: Gloria Can MR#: [id number] : 2000 Acct:[id number] Age/Sex: 22 / F Date of Service: 05/28/22 Loc: ED Accession Number: [id number] ?? Procedure: XR chest 1V Ordering Provider: Simi Joy D.O. PROCEDURE:? XR CHEST 1V ? INDICATIONS:? chest pain ? TECHNIQUE:? One view of the chest was acquired.? ? COMPARISON:? [facility], CT, CT ANGIO CHEST PE, 10/29/2021, 13:31.? [facility], CR, XR CHEST 1 VIEW, 10/29/2021, 10:17. ? FINDINGS:? ? Surgical changes and devices:? None.? ? Lungs and pleura:? Lungs are clear.? No pleural effusions or pneumothorax.? ? Mediastinum:? Mediastinal contours appear normal.? Heart size is normal.? ? Bones and chest wall:? No suspicious bony lesions.? Overlying soft tissues appear unremarkable.? ? IMPRESSION:? No acute pulmonary process. ? ? Dictated by: Ayla Liz M.D. on 05/28/2022 at 15:06 ? ? ECG Data Interpretation: Normal sinus rhythm rate 107 PA interval 150 QRS [address] changes MDM Narrative Medical decision making narrative: Patient is overall feeling better. Blood work supple reassuring D-dimer is negative. Heart rate has improved. She was recently started on multiple medications which do interacting cause excessive drowsiness. That is 1 of patient's complaints is that she is always extremely tired sleeping more than 10 hours a day and can sleep immediately. I think she is having some medication side effects. Started on 2 medications very quickly. At this time I recommend that she stop the buspirone and talk with her provider. She recommend that she continue the Latuda she states that she probably does have a history of bipolar. She does see a therapist who manages her medications Patient tachycardic but does not seem infectious. Lactic acid is negative. No leukocytosis Discharge Plan Departure Patient Disposition: Home Clinical Impression: Adverse drug reaction Instructions: DI for Adverse Drug Reaction -- Other Activity Restrictions/Additional Instructions: *You have been diagnosed with possible drug reaction *What to do: At this time I suspect that you may be reacting to all of her new medications. Please discuss your medication and her dosage with your prescriber. At this time I do recommend that you stop the Buspurone *Continue to take medications as directed *Follow up with your primary care provider in 2-3 days or call [phone] *Return to ER if you should have increasing weakness, dizziness lightheadedness, palpitation passing out [or] any new, worsening or concerning symptoms Referrals: Beryl Guerra PA-C [Primary Care Provider] - Visit Report Forms: Patient Portal/API
[2022-05-28] MEDS: SODIUM CHLORIDE 0.9% 1,000 ML 1000 ML IV (15:35)
[2022-05-28 15:37] LABS: Thyroid Stimulating Hormone 1.17 uIU/mL (0.47-4.68)
[2022-06-03 10:47] LABS: Lamotrigine Lamictal 2.8 ug/mL (2.0-20.0)
== END 2022-05-28 17:28 | disposition home or self-care (01) ==
PROVIDERS: Emergency Provider Emergency Medicine; PCP Physician Assistant
DX: R07.9 Chest pain, unspecified (principal); T50.905A Adverse effect of unspecified drugs, medicaments and biological substances, initial encounter
CPT/HCPCS: 36415; 71045; 80053; 80175; 82550; 83605; 83690; 83735; 84443; 84484; 85025; 85379; 93005; 96360; 99284

== ENCOUNTER 2022-07-11 05:51 | Emergency (ER) | payer OTHER, SELFPAY ==
[2022-07-11 06:07] VITALS: BP 132/76; PULSE 98; RESP 20; TEMP 36.6; O2SAT 98; BMI 36.9
[2022-07-11] MEDS: ONDANSETRON 4 MG/2 ML INJ IV (06:24)
--- NOTE | 2022-07-11 06:29 | ED.HA ---
HPI - Headache <DO Otoniel Sood Last Filed: 07/21/22 02:50> General Chief Complaint: Headache Stated Complaint: abd pain, heavy period, throwing up, dizzy Time Seen by Provider: 07/11/22 06:24 Mode of arrival: Ambulatory History of Present Illness HPI Narrative: Patient is a 22-year-old female with history of stroke versus MS ongoing left-sided headache with left-sided facial pressure presents today with variety of problems headache and left-sided facial pressure are there but she has been vomiting all night she is having an extra own heavy menstrual cycle as well. It has been bleeding for the last 13 days. She denies any dizziness or lightheadedness. She says symptoms she week see urine which is abnormal for her. She has history of endometriosis she is scheduled for surgery in October of 2022. She is having some cramping as well she usually takes Tylenol and ibuprofen which she has been doing it has not helped her headache or her menstrual cramps. She did see a neurologist regards to her headaches and left-sided facial numbness was not happy with the way that he treated her and she is going to see another 1 next month. She has not had any fever or chills although she was sweaty last night. Overall not feeling well and came to the ED Related Data Allergies Allergy/AdvReac Type Severity Reaction Status Date / Time No Known Drug Allergies Allergy Verified 05/16/22 15:53 Review of Systems <DO Otoniel Sood Last Filed: 07/21/22 02:50> Review of Systems Narrative: GENERAL: Denies chills, fatigue, malaise, fever, sweats, travel HEENT: Denies sinus pain, ear pain, sore throat, difficulty swallowing, neck pain RESPIRATORY: Denies dyspnea, cough, wheezing, hemoptysis, sputum. CARDIOVASCULAR: Denies chest pain, palpitations, orthopnea, edema GASTROINTESTINAL: Denies nausea, vomiting, abdominal pain, diarrhea, constipation, melena. : Denies dysuria, frequency, incontinence, hematuria, urinary retention, flank pain. 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 12 point review of systems is negative except for those stated above and HPI Patient History <DO Otoniel Sood Last Filed: 07/21/22 02:50> Social History Smoking Status: Never smoker Smoking Status: Never smoker alcohol intake frequency: 0-2 drinks per day Substance Use Type: marijuana Exam <Simi Joy DO - Last Filed: 07/21/22 02:50> Initial Vital Signs Initial Vital Signs: Vital Signs Temperature 97.8 F 07/11/22 06:07 Pulse Rate 98 H 07/11/22 06:07 Respiratory Rate 20 07/11/22 06:07 Blood Pressure 132/76 07/11/22 06:07 Pulse Oximetry 98 07/11/22 06:07 Oxygen Delivery Method 07/11/22 06:07 GENERAL: Alert 22-year-old female appears uncomfortable and in no acute distress. HEENT: Head atraumatic,EOMI, pupils reactive, face symmetric, moist mucous membranes CARDIOVASCULAR: Regular rate and rhythm without murmurs, rubs or gallops. RESPIRATORY: Breath sounds equal bilaterally, no wheezes rales or rhonchi. ABDOMEN: Soft, mild lower abdominal pain and cramping guarding no rebound no right upper quadrant pain no right lower quadrant pain : No CVA tenderness EXTREMITIES: Normal range of motion, no clubbing or edema. Neurovascularly intact NEUROLOGICAL: Alert and oriented x4.Normal gait and speech. Body Specialist strength equal bilaterally on lower extremity strength equal SKIN: Warm, dry, no laceration, no petechiae, no rashes or lesions. <Kinjal Mejia DO - Last Filed: 07/11/22 09:22> Initial Vital Signs Initial Vital Signs: Vital Signs Temperature 97.8 F 07/11/22 06:07 Pulse Rate 98 H 07/11/22 06:07 Respiratory Rate 20 07/11/22 06:07 Blood Pressure 132/76 07/11/22 06:07 Pulse Oximetry 98 07/11/22 06:07 Oxygen Delivery Method 07/11/22 06:07 Course <DO Otoniel Sood Last Filed: 07/21/22 02:50> Orders Ordered: Discontinued Medications Ketorolac Tromethamine (Ketorolac 30 Mg/Ml Vial) 15 mg IV NOW ONE Stop: 07/11/22 06:40 Last Admin: 07/11/22 06:44 Dose: 15 mg Documented By: LAWSON Ondansetron HCl (Ondansetron 4 Mg/2 Ml Inj) 4 mg IV NOW ONE Stop: 07/11/22 06:19 Last Admin: 07/11/22 06:24 Dose: 4 mg Documented By: LAWSON Vital Signs Vital signs: Vital Signs - 8 hr 07/11/22 06:07 07/11/22 08:01 07/11/22 08:02 Temperature 97.8 F Pulse Rate 98 H Respiratory Rate 20 Blood Pressure 132/76 123/71 Pulse Oximetry 98 90 L Oxygen Delivery Method Room Air 07/11/22 08:02 07/11/22 08:30 07/11/22 08:30 Temperature Pulse Rate 98 H 80 Respiratory Rate Blood Pressure 116/64 Pulse Oximetry 99 98 Oxygen Delivery Method <Kinjal Mejia DO - Last Filed: 07/11/22 09:22> Orders Ordered: Discontinued Medications Ketorolac Tromethamine (Ketorolac 30 Mg/Ml Vial) 15 mg IV NOW ONE Stop: 07/11/22 06:40 Last Admin: 07/11/22 06:44 Dose: 15 mg Documented By: LAWSON Ondansetron HCl (Ondansetron 4 Mg/2 Ml Inj) 4 mg IV NOW ONE Stop: 07/11/22 06:19 Last Admin: 07/11/22 06:24 Dose: 4 mg Documented By: LAWSON Vital Signs Vital signs: Vital Signs - 8 hr 07/11/22 06:07 07/11/22 08:01 07/11/22 08:02 Temperature 97.8 F Pulse Rate 98 H Respiratory Rate 20 Blood Pressure 132/76 123/71 Pulse Oximetry 98 90 L Oxygen Delivery Method Room Air 07/11/22 08:02 07/11/22 08:30 07/11/22 08:30 Temperature Pulse Rate 98 H 80 Respiratory Rate Blood Pressure 116/64 Pulse Oximetry 99 98 Oxygen Delivery Method MDM - Headache <Simi Joy DO - Last Filed: 07/21/22 02:50> Lab Data Result diagrams: 07/11/22 06:25 07/11/22 06:25 Labs: Lab Results 07/11/22 07/11/22 07/11/22 Range/Units 06:25 06:25 06:45 WBC 6.3 (4.5-11.0) X10^3/uL RBC 4.20 (4.0-5.2) X10^6/uL Hgb 12.7 (12.0-16.0) g/dL Hct 36.6 (36-46) % MCV 87.3 (80-100) fL MCH 30.3 (26-34) PG MCHC 34.7 (30-36) % RDW 12.6 (11.6-14.8) % Plt Count 271 (150-400) X10^3/uL Neut % (Auto) 52.2 (50-75) % Lymph % (Auto) 28.1 (25-40) % [place] % (Auto) 10.9 (3-14) % Eos % (Auto) 5.1 H (2-4) % Baso % (Auto) 3.7 H (0-2) % Neut # (Auto) 3300 (3358-4160) /uL Lymph # (Auto) 1800 (0208-9703) /uL [place] # (Auto) 700 (0-900) /uL Eos # (Auto) 300 (0-450) /uL Baso # (Auto) 200 H (0-100) /uL Sodium 139 (137-145) mmol/L Potassium 4.9 (3.4-5.1) mmol/L Chloride 104 (98-107) mmol/L Carbon Dioxide 26 (22-32) mmol/L BUN 15 (7-17) mg/dL Creatinine 0.86 (0.52-1.04) mg/dL Estimated GFR > 60 (>60) mL/min BUN/Creatinine Ratio 17.4 (6-22) Glucose 106 H (70-100) mg/dL Calcium 9.2 (8.4-10.2) mg/dL Total Bilirubin 0.3 (0.2-1.3) mg/dL AST 20 (14-36) IU/L ALT 15 (<35) IU/L Alkaline Phosphatase 72 (38-126) U/L Total Protein 7.7 (6.3-8.2) g/dL Albumin 4.5 (3.5-5.0) g/dL Globulin 3.2 (1.7-4.1) g/dL Albumin/Globulin Ratio 1.4 (1.0-2.8) Lipase 64 (23-300) U/L Urine RBC 0-1/hpf (0-5/HPF) Urine WBC None seen (0-5/HPF) Ur Squamous Epith Cells 1-5 /hpf (0-5/HPF) Urine Bacteria Occasional (0-1) (None) Point of Care Testing Test Results Negative Urine Dip Bedside Urine Glucose Negative Bedside Urine Bilirubin - Negative Bedside Urine Ketone - Negative Urine Specific [place] 1.020 Bedside Urine Occult Blood + Bedside Urine pH 6.0 Bedside Urine Protein - Negative Bedside Urine Urobilinogen - Negative Bedside Urine Nitrite - Negative Bedside Urine Leukocytes - Negative Esterase MDM Narrative Medical decision making narrative: Patient has multiple chronic ongoing problems. Increased pain today. Waiting for ultrasound. Patient signed out to Dr. Mejia <Kinjal Mejia, DO - Last Filed: 07/11/22 09:22> Lab Data Labs: Lab Results 07/11/22 07/11/22 07/11/22 Range/Units 06:25 06:25 06:45 WBC 6.3 (4.5-11.0) X10^3/uL RBC 4.20 (4.0-5.2) X10^6/uL Hgb 12.7 (12.0-16.0) g/dL Hct 36.6 (36-46) % MCV 87.3 (80-100) fL MCH 30.3 (26-34) PG MCHC 34.7 (30-36) % RDW 12.6 (11.6-14.8) % Plt Count 271 (150-400) X10^3/uL Neut % (Auto) 52.2 (50-75) % Lymph % (Auto) 28.1 (25-40) % [place] % (Auto) 10.9 (3-14) % Eos % (Auto) 5.1 H (2-4) % Baso % (Auto) 3.7 H (0-2) % Neut # (Auto) 3300 (3908-9481) /uL Lymph # (Auto) 1800 (3847-6827) /uL [place] # (Auto) 700 (0-900) /uL Eos # (Auto) 300 (0-450) /uL Baso # (Auto) 200 H (0-100) /uL Sodium 139 (137-145) mmol/L Potassium 4.9 (3.4-5.1) mmol/L Chloride 104 (98-107) mmol/L Carbon Dioxide 26 (22-32) mmol/L BUN 15 (7-17) mg/dL Creatinine 0.86 (0.52-1.04) mg/dL Estimated GFR > 60 (>60) mL/min BUN/Creatinine Ratio 17.4 (6-22) Glucose 106 H (70-100) mg/dL Calcium 9.2 (8.4-10.2) mg/dL Total Bilirubin 0.3 (0.2-1.3) mg/dL AST 20 (14-36) IU/L ALT 15 (<35) IU/L Alkaline Phosphatase 72 (38-126) U/L Total Protein 7.7 (6.3-8.2) g/dL Albumin 4.5 (3.5-5.0) g/dL Globulin 3.2 (1.7-4.1) g/dL Albumin/Globulin Ratio 1.4 (1.0-2.8) Lipase 64 (23-300) U/L Urine RBC 0-1/hpf (0-5/HPF) Urine WBC None seen (0-5/HPF) Ur Squamous Epith Cells 1-5 /hpf (0-5/HPF) Urine Bacteria Occasional (0-1) (None) Point of Care Testing Test Results Negative Urine Dip Bedside Urine Glucose Negative Bedside Urine Bilirubin - Negative Bedside Urine Ketone - Negative Urine Specific [place] 1.020 Bedside Urine Occult Blood + Bedside Urine pH 6.0 Bedside Urine Protein - Negative Bedside Urine Urobilinogen - Negative Bedside Urine Nitrite - Negative Bedside Urine Leukocytes - Negative Esterase Imaging Data US - 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 Endometrium measures 4 mm. Myometrium is homogeneous and uterus is anteverted measuring 8.9 x 4.2 x 7.1 cm, right ovary measures 2.4 x 3.2 x 2.4 cm with normal sonographic appearance and left ovary measures 2.4 x 2.7 x 2.4 cm with normal sonographic appearance and blood flow demonstrated bilaterally with normal spectral and Doppler imaging, no fluid in the cul-de-sac or adnexal masses. MDM Narrative Medical decision making narrative: Patient has multiple chronic ongoing problems. Increased pain today. Waiting for ultrasound. Patient signed out to Dr. Mejia Patient signed out to myself by Dr. Joy. Patient has pelvic ultrasound pending. Patient seen by myself patient and I reviewed her ultrasound report she noted she was told she had what sounds like an ovarian cyst in the past. It is not noted today but we did discuss can come and go. Patient has follow-up with OBGYN for surgery for evaluation for endometriosis in October. She does not have any other questions or concerns currently. All questions answered. She found the Toradol quite helpful for her discomfort today. Discharge Plan Departure Patient Disposition: Home Clinical Impression: Pelvic pain Activity Restrictions/Additional Instructions: Follow-up with OBGYN for recheck I hope your surgery goes well in October. You may continue with ibuprofen and/or Tylenol as needed. Please return for fevers, passing out, new chest pain or shortness of breath, persistent vomiting, going through more than a pad an hour or other new or concerning changes. Referrals: Beryl Guerra PA-C [Primary Care Provider] - Visit Report Forms: Patient Portal/API
[2022-07-11 06:35] LABS: Add Manual Diff / Slide Review NO; Basophils Absolute Auto 200 /uL (0-100); Basophils Percent Auto 3.7 % (0-2); Eosinophils Absolute Auto 300 /uL (0-450); Eosinophils Percent Auto 5.1 % (2-4); Hematocrit 36.6 % (36-46); Hemoglobin 12.7 g/dL (12.0-16.0); Lymphocytes Absolute Auto 1800 /uL (1100-4500); Lymphocytes Percent Auto 28.1 % (25-40); Mean Corpuscular HGB Conc 34.7 % (30-36); Mean Corpuscular Hemoglobin 30.3 PG (26-34); Mean Corpuscular Volume 87.3 fL (80-100); Monocytes Absolute Auto 700 /uL (0-900); Monocytes Percent Auto 10.9 % (3-14); Neutrophils Absolute Auto 3300 /uL (1500-7000); Neutrophils Percent Auto 52.2 % (50-75); Platelet Count 271 X10^3/uL (150-400); Red Cell Distribution Width 12.6 % (11.6-14.8); White Blood Cell Count 6.3 X10^3/uL (4.5-11.0)
--- NOTE | 2022-07-11 06:39 | DI.US.S_ITS ---
PROCEDURE: US PELVIC COMPLETE INDICATIONS: HEAVY MENSES TECHNIQUE: Real-time scanning was performed of the pelvic organs, with image documentation. Additional endovaginal scanning was necessary due to incomplete visualization of the adnexal and endometrial structures by transabdominal scanning. COMPARISON: [facility], CT, CT ABDOMEN PELVIS WITH CONTRAST ENTEROGRAPHY, 11/30/2021, 13:31. FINDINGS: Uterus: Uterus is anteverted and normal in size at 8.9 x 4.2 x 7.1 cm. The myometrium is homogeneous. The endometrium measures 4.2 mm combined thickness. Ovaries: The right ovary measures 3.4 x 3.2 x 2.4 cm, with a calculated ovarian volume of 13.5 cc. The left ovary measures 2.4 x 2.7 x 2.4 cm, with a calculated ovarian volume of 8.0 cc. The ovaries have a normal sonographic appearance. Less than 12 follicles can be seen in each ovary. No adnexal masses are seen. Other: No pathologic free abdominal or pelvic fluid. IMPRESSION: Normal pelvic ultrasound exam. No significant discrepancy with the assistant shift supervisor radiology preliminary report. We strive to produce accurate, complete, and clear reports of imaging services. To assist us in improving patient care, this report was composed using standard report templates and voice recognition software. Therefore, it may contain abnormal punctuation, insertions and/or omissions. Occasional wrong-word or sound-alike substitutions may occur. Though we review the report and make efforts to correct it, we do recommend that the report be read carefully in proper context to recognize any text inaccuracies. Dictated by: Ambrosio Parisi M.D. on 07/11/2022 at 8:16 Approved by: Ambrosio Parisi M.D. on 07/11/2022 at 8:19
[2022-07-11 06:44] LABS: Alanine Aminotransferase 15 IU/L (<35); Albumin 4.5 g/dL (3.5-5.0); Albumin Globulin Ratio 1.4 (1.0-2.8); Alkaline Phosphatase 72 U/L (38-126); Aspartate Aminotransferase 20 IU/L (14-36); BUN Creatinine Ratio 17.4 (6-22); Bilirubin Total 0.3 mg/dL (0.2-1.3); Blood Urea Nitrogen 15 mg/dL (7-17); Calcium 9.2 mg/dL (8.4-10.2); Carbon Dioxide 26 mmol/L (22-32); Chloride 104 mmol/L (98-107); Estimated Glomerular Filt Rate > 60 mL/min (>60); Globulin 3.2 g/dL (1.7-4.1); Glucose 106 mg/dL (70-100); HEMOLYSIS < 15 (0-50); Lipase 64 U/L (23-300); Potassium 4.9 mmol/L (3.4-5.1); Sodium 139 mmol/L (137-145); Total Protein 7.7 g/dL (6.3-8.2)
[2022-07-11] MEDS: KETOROLAC 30 MG/ML VIAL 15 MG IV (06:44)
[2022-07-11 07:23] LABS: Bacteria Urine Occasional (0-1); RBC Urine 0-1/HPF (0-5/HPF); Squamous Epithelial Cell Urine 1-5 /HPF (0-5/HPF); WBC Urine None Seen (0-5/HPF)
[2022-07-11 08:01] VITALS: O2SAT 90
[2022-07-11 08:02] VITALS: BP 123/71; PULSE 98; O2SAT 99
[2022-07-11 08:30] VITALS: BP 116/64; PULSE 80; O2SAT 98
== END 2022-07-11 08:57 | disposition home or self-care (01) ==
PROVIDERS: Emergency Medicine; Emergency Provider Emergency Medicine; PCP Physician Assistant
DX: R10.2 Pelvic and perineal pain (principal); R51.9 Headache, unspecified; R11.2 Nausea with vomiting, unspecified; N92.0 Excessive and frequent menstruation with regular cycle
CPT/HCPCS: 36415; 76830; 76856; 80053; 81003; 81015; 81025; 83690; 85025; 87086; 96374; 96375; 99284; J1885; J2405

== ENCOUNTER → 2023-05-13 15:34 | Outpatient (CLI) | payer OTHER, SELFPAY ==
--- NOTE | 2023-05-13 | DI.ECHO.S_ITS ---
[facility] +---------+ : : [address] : [place] : : : : [id number] : : : : Phone: [phone]---------+ Echocardiogram Report + + :Name: MATTIE LIGHT Study Date: 05/13/2023 Height: 69 in : :[facility] ReadingLocation: Weight: 250 lb : : Gender: Female BSA: 2.3 m2 : :: 2000 Age: 23 yrs BP: 145/98 mmHg: :Reason For Study: Cardiomegaly : :Ordering Physician: CARLOZ, : :FRANCISCO Performed By: Savanah Grimes : :Referring: FRANCISCO PARRISH : + + Interpretation Summary 1) Normal left ventricular thickness and size with low normal systolic function (EF 50-55%). 2) Normal right ventricular size and function. 3) No significant valvular abnormalities. 4) No prior Echo available for comparison. Procedure: A two-dimensional transthoracic echocardiogram with color flow and Doppler was performed. The study quality was technically adequate. There is no prior echocardiogram noted for this patient. The patient was in normal sinus rhythm during the exam. Left Ventricle: The left ventricle is normal in size and wall thickness. The ejection fraction is estimated to be 50-55%. There are no focal wall motion abnormalities. Diastolic parameters suggest a relaxation abnormality of the left ventricle, consistent with probable normal filling pressures. Right Ventricle: The right ventricle is normal in size and function. Atria: The left atrial size is normal. Right atrial size is normal. There is no Doppler evidence for an interatrial shunt. Mitral Valve: The mitral valve is normal. There is no mitral valve stenosis. There is no mitral regurgitation noted. Aortic Valve: The aortic valve is trileaflet. The aortic valve opens well. There is no aortic valve stenosis. There is trace aortic regurgitation. Tricuspid Valve: The tricuspid valve is normal. There is no tricuspid stenosis. There is trace tricuspid regurgitation. The right ventricular systolic pressure is estimated to be at least 21 mmHg based on an estimated right atrial pressure of 3 mm Hg. Pulmonic Valve: The pulmonic valve leaflets are thin and pliable; valve motion is normal. There is no pulmonic valvular stenosis. There is trace pulmonic regurgitation. Great Vessels: The aortic root is normal size. The ascending aorta is normal in size. The pulmonary artery is normal size. The IVC is of normal diameter and collapses greater than 50% with a sniff. This suggests a low right atrial pressure of 3 mm Hg. Pericardium/ Pleura There is no pericardial effusion. MMode/2D Measurements & Calculations LVIDd: 4.9 cm LVOT diam: 2.1 cm LVIDs: 3.3 cm Ao root diam: 3.2 cm FS: 32.7 % asc Aorta Diam: 2.9 cm EPSS: 1.4 cm IVSd: 1.0 cm LVPWd: 0.90 cm LV bowden. diameter/BSA (cm/m^2): 2.2 LV sys. diameter/BSA (cm/m^2): 1.5 LA A2 area: 12.3 cm2 RA long axis: 4.0 cm LA A4 area: 13.3 cm2 RA area: 10.6 cm2 LA length (vol): 4.3 cm RA vol: 23.7 ml LA vol: 32.4 ml RA : 10.4 ml/m2 LA vol index: 14.3 ml/m2 RVD1 (basal): 3.2 cm LVLs ap4: 6.3 cm LVLd ap2: 8.0 cm TAPSE_phl: 2.7 cm LVLs ap2: 6.0 cm Doppler Measurements & Calculations Ao V2 max: 122.0 cm/sec LVOT Max Tyree: 98.6 cm/sec Ao V2 mean: 84.2 cm/sec LV V1 max P.9 mmHg Ao max P.0 mmHg LV V1 VTI: 17.3 cm Ao mean P.0 mmHg KIEL(I,D): 2.7 cm2 Ao V2 VTI: 22.5 cm KIEL(V,D): 2.8 cm2 sev ratio: 0.77 KIEL indexed to BSA (cm^2/m^2): 1.2 MV E max tyree: 81.4 cm/sec TR max tyree: 213.0 cm/sec MV A max tyree: 73.3 cm/sec TR max P.1 mmHg MV E/A: 1.1 PA V2 max: 101.0 cm/sec Med Peak E' Tyree: 11.7 cm/sec PA V2 mean: 75.1 cm/sec E/E' med: 7.0 PA mean P.0 mmHg Lat Peak E' Tyree: 20.6 cm/sec PA pr(Accel): 23.2 mmHg E/E' lat: 4.0 E/e' average: 5.5 MV dec time: 0.16 sec SV(LVOT): 60.0 ml AV VR_phl: 0.81 KIEL(VTI)/BSA_phl: 1.2 Reading Physician:07:01 PM
== END ==
PROVIDERS: PCP Family Medicine; Referring Provider Internal Medicine Cardiovascular Disease; Visit Provider Internal Medicine Cardiovascular Disease
DX: I51.7 Cardiomegaly (principal)
CPT/HCPCS: 93306